=== PATIENT | male | born 1995 | race Caucasian/White ===

== ENCOUNTER 2020-04-23 13:37 | Emergency (ER) | payer OTHER ==
[2020-04-23 13:46] VITALS: RESP 18
[2020-04-23] MEDS ORDERED: SODIUM CHLORIDE 0.9% 1,000 ML IV STA (14:16)
[2020-04-23] MEDS ORDERED: KETOROLAC 30 MG/ML 1 ML VIAL IVP STA (14:16)
[2020-04-23] MEDS ORDERED: METOCLOPRAMIDE 5 MG/ML 2 ML VIAL IVP STA (14:16)
--- NOTE | 2020-04-23 14:23 | ED ---
General Adult HPI - General Chief complaint: Nausea/Vomiting/Diarrhea Stated complaint: Vomiting, abd pain Time Seen by Provider: 04/23/20 14:03 Source: patient Mode of arrival: ambulatory Limitations: no limitations - History of Present Illness Initial comments: Patient is a 24-year-old male presenting to the emergency Department with complaints of left-sided flank pain as well as nausea and vomiting since yesterday. Patient states he was at [facility] yesterday was diagnosed with a 3 mm left kidney stone. Patient states he was discharged with [place], ibuprofen, Zofran but states he has still not been able to keep any water or food down. Patient states he's been up most of the day vomiting. He is still having significant pain and no improvement with the [place] as. Patient denies any additional abdominal pain, chest pain, shortness of breath, fever, chills. He states he had blood in his urine yesterday but is unsure about today. He denies any abdominal surgeries in the past. He has no further complaints at this time. Upon arrival to the ER, his vitals are stable. - Related Data Home Medications Medication Instructions Recorded Confirmed HYDROcodone/APAP 5-325MG [[place] 1 tab PO Q6H PRN 04/23/20 04/23/20 5-325] Ibuprofen [Motrin] 600 mg PO Q6H PRN 04/23/20 04/23/20 Ondansetron Odt [Zofran Odt] 4 mg PO Q8H PRN 04/23/20 04/23/20 Previous Rx's Medication Instructions Recorded Metoclopramide [Reglan] 10 mg PO TID PRN #15 tab 04/23/20 Tamsulosin [Flomax] 0.4 mg PO DAILY #7 cap 04/23/20 Allergies Allergy/AdvReac Type Severity Reaction Status Date / Time No Known Allergies Allergy Verified 04/23/20 15:28 Review of Systems ROS Statement: Those systems with pertinent positive or pertinent negative responses have been documented in the HPI. ROS Other: All systems not noted in ROS Statement are negative. Past Medical History Past Medical History: No Reported History History of Any Multi-Drug Resistant Organisms: None Reported Past Surgical History: No Surgical Hx Reported Past Psychological History: No Psychological Hx Reported Smoking Status: Current every day smoker Past Alcohol Use History: None Reported Past Drug Use History: Marijuana General Exam - General Exam Comments Initial Comments: GENERAL: Well-appearing, well-nourished and in no acute distress, but appears uncomfortable. HEAD: Atraumatic, normocephalic. EYES: Pupils equal round and reactive to light, extraocular movements intact, sclera anicteric, conjunctiva are normal. ENT: TMs normal, nares patent, oropharynx clear without exudates. Moist mucous membranes. NECK: Normal range of motion, supple without lymphadenopathy or JVD. LUNGS: Breath sounds clear to auscultation bilaterally and equal. No wheezes rales or rhonchi. HEART: Regular rate and rhythm without murmurs, rubs or gallops. ABDOMEN: Mild left flank pain on percussion, mild left-sided abdominal pain. Soft, normoactive bowel sounds. No guarding, no rebound. No masses appreciated. : Deferred EXTREMITIES: Normal range of motion, no pitting or edema. No clubbing or cyanosis. NEUROLOGICAL: Normal speech, normal gait. PSYCH: Normal mood, normal affect. SKIN: Warm, Dry, normal turgor, no rashes or lesions noted. Limitations: no limitations Course Vital Signs 04/23/20 04/23/20 13:43 16:33 Temperature 97.7 F 97.8 F Pulse Rate 68 62 Respiratory 18 18 Rate Blood Pressure 132/89 107/62 O2 Sat by Pulse 100 99 Oximetry Medical Decision Making - Medical Decision Making Patient is a 24-year-old male here for a 3 mm left-sided stone. He was seen at [facility] yesterday was discharged with Zofran, ibuprofen, [place]. He presented today with continued pain, nausea and vomiting. His vitals are stable. Exam reveals left-sided abdominal tenderness. Computed tomography scan yesterday showed a 3 mm calculus at the ureteropelvic junction, today's KUB shows a stone more distally in the ureter. Patient's white count is elevated at 18.1, rest of the lab work is unremarkable, kidney function is stable. Urine shows no signs of infection. White count is most likely from active vomiting. I discussed the patient these findings. His stone seems to be moving down the ureter. Patient did received fluids, pain control in the ER. He is stable for discharge at this time. I did send patient's prescription for Flomax as well as Reglan. He already has [place] and ibuprofen at home. I discussed with patient to increase his fluid intake and to follow up with urologist. He hasn't agreement with this plan of care. Return parameters were discussed with the patient he verbalizes understanding. Case discussed with Dr. Mckenna. - Lab Data Result diagrams: 04/23/20 14:45 04/23/20 14:45 Lab Results 04/23/20 04/23/20 04/23/20 Range/Units 14:45 14:45 14:45 WBC 18.1 H (3.8-10.6) k/uL RBC 4.88 (4.30-5.90) m/uL Hgb 14.4 (13.0-17.5) gm/dL Hct 44.1 (39.0-53.0) % MCV 90.5 (80.0-100.0) fL MCH 29.6 (25.0-35.0) pg MCHC 32.7 (31.0-37.0) g/dL RDW 12.9 (11.5-15.5) % Plt Count 193 (150-450) k/uL Neutrophils % 82 % Lymphocytes % 9 % Monocytes % 7 % Eosinophils % 0 % Basophils % 0 % Neutrophils # 14.9 H (1.3-7.7) k/uL Lymphocytes # 1.7 (1.0-4.8) k/uL Monocytes # 1.3 H (0-1.0) k/uL Eosinophils # 0.1 (0-0.7) k/uL Basophils # 0.0 (0-0.2) k/uL Sodium 136 L (137-145) mmol/L Potassium 4.4 (3.5-5.1) mmol/L Chloride 104 (98-107) mmol/L Carbon Dioxide 23 (22-30) mmol/L Anion Gap 9 mmol/L BUN 17 (9-20) mg/dL Creatinine 1.17 (0.66-1.25) mg/dL Est GFR (CKD-EPI)AfAm >90 (>60 ml/min/1.73 sqM) Est GFR (CKD-EPI)NonAf 86 (>60 ml/min/1.73 sqM) Glucose 110 H (74-99) mg/dL Calcium 10.1 (8.4-10.2) mg/dL Total Bilirubin 0.8 (0.2-1.3) mg/dL AST 27 (17-59) U/L ALT 17 (4-49) U/L Alkaline Phosphatase 52 (38-126) U/L Total Protein 7.4 (6.3-8.2) g/dL Albumin 4.6 (3.5-5.0) g/dL Urine Color Yellow Urine Appearance Clear (Clear) Urine pH 6.0 (5.0-8.0) Ur Specific [place] 1.035 (1.001-1.035) Urine Protein 1+ H (Negative) Urine Glucose (UA) Negative (Negative) Urine Ketones 1+ H (Negative) Urine Blood Moderate H (Negative) Urine Nitrite Negative (Negative) Urine Bilirubin Negative (Negative) Urine Urobilinogen <2.0 (<2.0) mg/dL Ur Leukocyte Esterase Negative (Negative) Urine RBC 88 H (0-5) /hpf Urine WBC 4 (0-5) /hpf Hyaline Casts 1 (0-2) /lpf Urine Mucus Moderate H (None) /hpf Disposition Clinical Impression: Left ureteral stone, Nausea and vomiting Disposition: HOME SELF-CARE Condition: Stable Instructions (If sedation given, give patient instructions): Kidney Stones (ED) Additional Instructions: Please return to the Emergency Department if symptoms worsen or any other concerns. Continue with the medications as prescribed. Follow up with urologist as discussed. Prescriptions: Tamsulosin [Flomax] 0.4 mg PO DAILY #7 cap Metoclopramide [Reglan] 10 mg PO TID PRN #15 tab PRN Reason: GERD Is patient prescribed a controlled substance at d/c from ED?: No Referrals: None,Stated [Primary Care Provider] - 1-2 days Zackary Krueger MD [STAFF PHYSICIAN] - 1-2 days
[2020-04-23 15:12] LABS: Basophils % (A) 0 %; Eosinophils # (A) 0.1 k/uL (0-0.7); Eosinophils % (A) 0 %; HCT 44.1 % (39.0-53.0); HGB 14.4 gm/dL (13.0-17.5); Lymphocytes # (A) 1.7 k/uL (1.0-4.8); Lymphocytes % (A) 9 %; MCH 29.6 pg (25.0-35.0); MCHC 32.7 g/dL (31.0-37.0); MCV 90.5 fL (80.0-100.0); Mean Platelet Volume 7.8; Monocytes # (A) 1.3 k/uL (0-1.0); Monocytes % (A) 7 %; Neutrophils # (A) 14.9 k/uL (1.3-7.7); Neutrophils % (A) 82 %; Platelet Count 193 k/uL (150-450); RBC 4.88 m/uL (4.30-5.90); RDW 12.9 % (11.5-15.5); WBC 18.1 k/uL (3.8-10.6)
[2020-04-23 15:20] LABS: Appearance,Urine Clear (Clear); Bilirubin,Urine Negative (Negative); Blood,Urine Moderate (Negative); Color,Urine Yellow; Glucose,Urine (UA) Negative (Negative); Hyaline Casts,Urine 1 /lpf (0-2); Ketones,Urine 1+ (Negative); Leukocyte Esterase,Urine Negative (Negative); Mucus,Urine Moderate /hpf; Nitrite,Urine Negative (Negative); Protein,Urine 1+ (Negative); RBC,Urine 88 /hpf (0-5); Specific Gravity,Urine 1.035 (1.001-1.035); Urobilinogen,Urine <2.0 mg/dL (<2.0); WBC,Urine 4 /hpf (0-5)
[2020-04-23 15:21] LABS: ALT 17 U/L (4-49); AST 27 U/L (17-59); African American GFR (CKD) >90 (>60 ml/min/1.73 sqM); Albumin 4.6 g/dL (3.5-5.0); Alkaline Phosphatase 52 U/L (38-126); Anion Gap 9 mmol/L; Blood Urea Nitrogen 17 mg/dL (9-20); Calcium 10.1 mg/dL (8.4-10.2); Carbon Dioxide 23 mmol/L (22-30); Chloride 104 mmol/L (98-107); Glucose 110 mg/dL (74-99); Non-African American GFR(CKD) 86 (>60 ml/min/1.73 sqM); Potassium 4.4 mmol/L (3.5-5.1); Sodium 136 mmol/L (137-145); Total Bilirubin 0.8 mg/dL (0.2-1.3); Total Protein 7.4 g/dL (6.3-8.2)
[2020-04-23] MEDS ORDERED: MORPHINE SULFATE 4 MG/ML SYRINGE IVP STA (15:43)
[2020-04-23] MEDS ORDERED: ONDANSETRON 4 MG/2 ML VIAL IVP STA (15:43)
--- NOTE | 2020-04-23 15:43 | XR ---
EXAMINATION TYPE: XR KUB DATE OF EXAM: 04/23/2020 Comparison: 03/07/2011 Clinical History: 24 year-old male with pain, left ureter stone Findings: Lung bases are clear. No evidence for free intraperitoneal air. Nonobstructive bowel gas pattern. Prominent loop of bowel within the left upper to mid abdomen probably transient. Mild stool burden. Blood in the right side of the pelvis. Small 4 mm calcification left paramedian mid abdomen at the L3-L4 level. IMPRESSION: Correlate with patient's symptoms for a potential 4 mm proximal third left ureteral calculus.
[2020-04-23 16:35] VITALS: BP 107/62; PULSE 62; TEMP 97.8
== END 2020-04-23 17:23 | disposition home or self-care (01) ==
LOC: EC 13:37
DX: N20.2 Calculus of kidney with calculus of ureter (principal); F17.200 Nicotine dependence, unspecified, uncomplicated
CPT/HCPCS: 36415; 80053; 85025; 81001; 74018; 99284; 96374; 96375 ×3; 96361 ×2; J2270; J2765; J2405; J1885

== ENCOUNTER 2022-07-27 01:11 | Emergency (ER) | payer OTHER ==
[2022-07-27 01:18] VITALS: BP 117/76; PULSE 53; RESP 18; TEMP 97.5
[2022-07-27] MEDS ORDERED: ERYTHROMYCIN 5 MG/GM OPHTH OINT 3.5 GM TUBE LEFT EYE STA (01:31)
--- NOTE | 2022-07-27 01:34 | ED ---
Eye Problem HPI - General Chief complaint: Eye Problems Stated complaint: Eye Irritation Time Seen by Provider: 07/27/22 01:20 Source: patient, RN notes reviewed Mode of arrival: ambulatory Limitations: no limitations - History of Present Illness Initial comments: This is a pleasant 27-year-old male who presents complaining of a possible foreign body to his left eye. Patient has a foreign body sensation. 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 Patient was wearing protective lenses no other complaints. No headache, no fever or chills, no changes in vision or hearing, no sore throat or difficulty with speech, no neck pain, no chest pain or shortness of breath, no abdominal pain, no nausea or vomiting, no changes in urination or bowel movements, no numbness or tingling, no extremity pain, no skin rashes or lesions. Past medical, surgical, social, and family history reviewed. MD chief complaint: eye redness, foreign body - Related Data Home Medications Medication Instructions Recorded Confirmed HYDROcodone/APAP 5-325MG [[place] 1 tab PO Q6H PRN 04/23/20 04/23/20 5-325] Ibuprofen [Motrin] 600 mg PO Q6H PRN 04/23/20 04/23/20 Ondansetron Odt [Zofran Odt] 4 mg PO Q8H PRN 04/23/20 04/23/20 Previous Rx's Medication Instructions Recorded Metoclopramide [Reglan] 10 mg PO TID PRN #15 tab 04/23/20 Tamsulosin [Flomax] 0.4 mg PO DAILY #7 cap 04/23/20 Allergies Allergy/AdvReac Type Severity Reaction Status Date / Time No Known Allergies Allergy Verified 07/27/22 01:18 Review of Systems ROS Statement: Those systems with pertinent positive or pertinent negative responses have been documented in the HPI. ROS Other: All systems not noted in ROS Statement are negative. Past Medical History Past Medical History: No Reported History History of Any Multi-Drug Resistant Organisms: None Reported Past Surgical History: No Surgical Hx Reported Past Psychological History: No Psychological Hx Reported Smoking Status: Current every day smoker Past Alcohol Use History: None Reported Past Drug Use History: Marijuana General Exam - General Exam Comments Initial Comments: Patient in minimal distress secondary to possible foreign body of the left eye. Does not appear to be ill or toxic Limitations: no limitations General appearance: alert, in no apparent distress Head exam: Present: atraumatic, normocephalic, normal inspection Eye exam: Present: PERRL, EOMI, conjunctival injection (Minimal with clear tearing, left eye). Absent: scleral icterus, nystagmus, periorbital swelling, periorbital tenderness Expanded Eyelids: Normal Inspection: Bilateral (Eyelids everted, no foreign body noted) Pupils: Regular, Round: Bilateral Sclera/Conjunctival: Injection: Left (Minimal, I uptake noted to the 9 o'clock position, very tiny consistent with a tiny corneal abrasion, no definitive foreign body) Anterior chamber: Normal Inspection: Bilateral Posterior chamber: Deferred: Bilateral Course Vital Signs 07/27/22 01:16 Temperature 97.5 F L Pulse Rate 53 L Respiratory 18 Rate Blood Pressure 117/76 O2 Sat by Pulse 100 Oximetry Procedures - Procedures Initial comment: Wood's lamp examination after topical anesthetic and fluorescein. Patient tolerated well. Patient had minimal uptake over the 9 o'clock position consistent with a tiny corneal abrasion. There was no evidence of foreign body. Medical Decision Making - Medical Decision Making Patient has a tiny corneal abrasion. There was no evidence of foreign body on my limited evaluation with only Wood's lamp. Slit lamp was not available. Hours. We'll have the patient follow-up with ophthalmology tomorrow. Patient given all information. Discussed treatment plan. All questions answered. Patient voiced understanding Patient was told to return to the ER for any signs or symptoms worsen. Told to return immediately if any other problems arise. All questions answered. Treatment plan discussed. Patient in agreement Every effort has been made to ensure accuracy of this dictation. However, due to the limitations of electronic medical records and dictation devices, errors in charting still occur. dairy processing supervisor Dr. Greene Disposition Clinical Impression: Corneal abrasion, left Disposition: HOME SELF-CARE Condition: Good Instructions (If sedation given, give patient instructions): Corneal Abrasion (ED) Additional Instructions: I antibiotic ointment, 1 cm to the affected eye every 4 hours for 2-3 days or as directed by the marketing traffic coordinator. Call the marketing traffic coordinator office at 8 AM in t morning for recheck today. You can use [id number] acetaminophen and/or ibuprofen for additional discomfort. Follow-up with your regular physician as directed. Return to the ER immediately if any symptoms worsen, new symptoms arise, or any other problems develop. Is patient prescribed a controlled substance at d/c from ED?: No Referrals: Ebonie Gauthier MD [STAFF PHYSICIAN] - 07/27/22 8:00 am Time of Disposition: 01:32
== END 2022-07-27 02:35 | disposition home or self-care (01) ==
LOC: EC 01:11
DX: S05.02XA Injury of conjunctiva and corneal abrasion without foreign body, left eye, initial encounter (principal); F17.200 Nicotine dependence, unspecified, uncomplicated; W45.8XXA Other foreign body or object entering through skin, initial encounter
CPT/HCPCS: 99282